=== PATIENT | male | born 1955 | race Caucasian/White ===

== ENCOUNTER 2023-06-23 14:08 | Observation (INO) | payer MEDICARE, BC ==
[2023-06-23 15:59] VITALS: BMI 24.4
[2023-06-23] MEDS ORDERED: Acetaminophen 650 MG Suppository PR PRN (17:13)
[2023-06-23] MEDS ORDERED: Acetaminophen 325 MG TAB PO PRN (17:13)
[2023-06-23 18:55] LABS: Troponin I 0.282 ng/mL (< 0.028)
[2023-06-23] MEDS: Enoxaparin 80 MG (0.8 mL) SYRINGE SC SCH (20:50)
[2023-06-24 00:22] LABS: Critical Call Chem Troponin I NUR.JP14@0022; Troponin I 0.219 ng/mL (< 0.028)
[2023-06-24 03:53] LABS: #Eosinphils 0.2 10x3/uL (0.0-0.5); #Monocytes 0.8 10x3/uL (0.0-1.1); #Neutrophils 4.5 10x3/uL (1.5-8.4); %Basophils 0.5 % (0.0-2.0); %Eosinophils 2.5 % (0.0-6.0); %Lymphocytes 30.3 % (18.0-47.0); %Monocytes 10.3 % (0.0-10.0); %Neutrophils 56.2 % (40.0-75.0); Mean Corpuscular HGB CONC 33.3 g/dL (32.0-36.0); Mean Corpuscular Hemoglobin 29.3 pg (27.0-33.0); Mean Corpuscular Volume 87.8 fl (81.2-95.1); Mean Platelet Volume 10.2 fl (7.4-10.4); Platelet Count 260 10x3/uL (150-450); RBC Distribution Width 13.2 % (11.5-14.5); White Blood Cell (WBC) Count 8.1 10x3/uL (3.5-10.5)
[2023-06-24 04:13] LABS: Anion Gap 11 mmol/L (10-20); BUN (Urea Nitrogen) 17 mg/dL (8.4-25.7); Calc. Creatinine Clearance 71 mL/min (70-130); Calcium 8.8 mg/dL (7.8-10.44); Carbon Dioxide 26 mmol/L (23-31); Chloride 109 mmol/L (98-107); Estimated GFR 68; Glucose 96 mg/dL (80-115); Magnesium 1.9 mg/dL (1.6-2.6); Potassium 4.6 mmol/L (3.5-5.1); Sodium 141 mmol/L (136-145)
[2023-06-24] MEDS ORDERED: Aspirin 81 mg Enteric Coated Tablet PO SCH (10:45)
[2023-06-24 12:27] VITALS: BP 118/59; TEMP 98.4
[2023-06-25] MEDS ORDERED: Aspirin 81 mg Enteric Coated Tablet PO SCH (09:00)
== END 2023-06-24 15:37 | disposition home or self-care (01) ==
LOC: CSHTELE 14:25
PROVIDERS: ADMIT Hospitalist; ATTEND Physician Assistant
PROC: B246ZZZ Ultrasonography of Right and Left Heart (ICD-10-PCS; principal; 2023-06-23)
DX: I48.0 Paroxysmal atrial fibrillation (principal); I21.4 Non-ST elevation (NSTEMI) myocardial infarction; R79.89 Other specified abnormal findings of blood chemistry; R00.2 Palpitations; Z79.82 Long term (current) use of aspirin; Z79.899 Other long term (current) drug therapy
CPT/HCPCS: 36415; 80048; 83735; 85025; 93306; G0378; J1650